=== PATIENT | male | born 1995 | race Caucasian/White ===

== ENCOUNTER 2023-06-25 11:02 | Emergency (ER) | payer MEDICAID, SELFPAY ==
[2023-06-25 11:05] VITALS: BP 161/95; PULSE 105; RESP 22; TEMP 36.4; O2SAT 97; BMI 42.3
--- NOTE | 2023-06-25 11:23 | EDS_ITS ---
HPI History of Present Illness Chief Complaint: Lower Extremity Injury Informant: patient Occured/Mechanism Mechanism/Context: Yes fall Onset/Context/Timing Onset: Yesterday Narrative Narrative: Patient presents with injury to right foot and ankle after a fall yesterday. He was standing on a wooden chair that was unstable and he fell to the ground. He complains of pain to his right foot and ankle and has difficulty with weightbearing today. He did take ibuprofen and Naprosyn yesterday but is not taken anything today for pain. [facility] Medical History (Updated 06/25/23 @ 13:[address] Martha Dale MD) Diabetes Foot injury Home Medications hydrocodone-acetaminophen 5-325mg 5mg-325mg 1 tab PO Q6H PRN PRN Pain 3 days #10 TABLETS 06/25/23 [Rx Last Taken Unknown] Allergy/AdvReac Type Severity Reaction Status Date / Time Penicillins Allergy Severe Anaphylaxis Verified 06/25/23 11:04 gabapentin AdvReac Mild NEURO Verified 06/25/23 11:04 codeine AdvReac Unknown PT UNSURE Verified 06/25/23 11:04 OF REACTION Social History Smoking Status: Unknown if ever smoked ROS ROS ED Constitutional Constitutional ED: Denies chills or fever(s) ENT ENT ED: Denies rhinorrhea Cardiovascular Cardiovascular: Denies chest pain Respiratory/Chest Respiratory/Chest: Denies cough or dyspnea Gastrointestinal Gastrointestinal: Denies abdominal pain or vomiting Musculoskeletal Musculoskeletal: Reports arthralgias; Denies back pain or neck pain Neurologic Neurologic: Denies headache(s) Psychiatric Psychiatric: Denies anxiety or depression Allergic/Immunologic Allergic/Immunologic ED: Denies mouth swelling EXAM Physical Exam Const Vital Signs: 06/25/23 11:05 Temperature 97.5 F L Temperature Source Temporal Pulse Rate 105 H Respiratory Rate 22 H Blood Pressure 161/95 H Blood Pressure Mean 117 Pulse Ox 97 Oxygen Delivery Method Room Air Positive well nourished and well developed General Appearance ED: well developed Neck full ROM Chest Wall inspection of chest normal and palpation of chest normal Resp normal respiratory effort and clear to auscultation bilaterally Cardio regular rate and regular rhythm GI non-tender Extremity Extremity Narrative: Tenderness palpation over the third, fourth, fifth metatarsals with no significant edema or ecchymosis. Cap refill present in all digits. Patient reports decreased sensation to touch in his fourth and fifth toes but does jump when I pinch his toes. Mild tenderness and edema to the lateral malleolus of the ankle. There is no tenderness at the knee or hip. Neuro oriented x3 and moves all extremities Skin no wounds MDM MDM MDM Narrative Medical decision making narrative: Ice pack placed to the wound. Patient given Naprosyn for pain and x-rays of the foot and ankle obtained. Differential diagnosis includes fracture, contusion, sprain, strain. Radiography Diagnostic Testing: Clinical Impression(s) from Imaging Studies Ankle X-Ray 06/25/23 11:25 IMPRESSION: Acute nondisplaced fracture at the proximal fifth metatarsal suggesting zone 3 Greenfield fracture. Age indeterminant probable prior injury of the distal fibula. There is visualized soft tissue edema. Electronically Signed: Renea Cee MD at 12:15 EST , Foot X-Ray 06/25/23 11:25 IMPRESSION: Acute nondisplaced fracture of the proximal shaft of the fifth metatarsal. Electronically Signed: Renea Cee MD at 12:09 EST , ADDENDUM: 06/25/23 1218 IMPRESSION: undefined Treatment and Re-Evaluation Narrative: Right foot x-ray per my interpretation reveals a Greenfield fracture. Ankle x-ray per my interpretation reveals chronic changes but no evidence of acute fracture. Radiology interpretation reviewed on both studies and agrees. Images were sent to Dr. Kline, on-call for podiatry. Patient is splinted with Ortho-Glass posterior splint. He is to remain nonweightbearing. He states he has a walker at home that he will use but does not want crutches. He understands that he cannot put any weight on his right foot. I will give him a prescription for [place]. He will follow-up with Dr. Kline early next week. Procedures Lower Extremity Splints Lower Extremity Splint: Orthoglass Splint Fabrication: Fabricated Location: Right Discharge Plan Triage Chief Complaint: Lower Extremity Injury ED Provider: Martha Dale Dx/Rx/DC Orders Clinical Impression: Greenfield fracture Instructions: ED Fracture, Foot Prescriptions: New hydrocodone-acetaminophen 5-325 mg tablet 1 tab PO Q6H PRN PRN (Reason: Pain) 3 Days Qty: 10 0RF Primary Care Provider: Amanda Biswas [employer]NAGER Referrals: Jeet Kline DPM [Med Staff - Active Staff] - 3-5 Days NOT,DEFINED [Non-Staff] - Disposition Disposition: Home, Self Care
--- NOTE | 2023-06-25 11:25 | RAD_ITS ---
STUDY: X-RAY - RIGHT FOOT CLINICAL: Male, 28 years old. Injury TECHNIQUE: 3 view(s) of the foot. COMPARISON: None. FINDINGS: Normal talus, calcaneus, and tarsal bones. Normal visualized subtalar, talonavicular, calcaneocuboid, tarsal and tarsometatarsal articulations. There is an acute nondisplaced fracture of the proximal shaft of the fifth metatarsal. There is adjacent soft tissue edema. Normal metatarsophalangeal joint of the great toe. Normal tibial and fibular sesamoid bones. Normal interphalangeal joint of the great toe. Normal phalanges of the great toe. Normal second through fifth metatarsophalangeal joints. Normal interphalangeal joints and phalanges of the lesser toes. RAD/Foot min 3 Views IMPRESSION: Acute nondisplaced fracture of the proximal shaft of the fifth metatarsal. Electronically Signed: Renea Cee MD at 12:09 EST ,
--- NOTE | 2023-06-25 11:25 | RAD_ITS ---
STUDY: X-RAY - RIGHT ANKLE REASON FOR EXAM: Male, 28 years old. Injury TECHNIQUE: 3 view(s) of the ankle. COMPARISON: Right foot x-ray June 25, 2023 FINDINGS: Normal visualized distal tibia and fibula. Normal medial and lateral malleoli. Normal tibiotalar articulation and ankle mortise. Normal visualized talus and calcaneus. The visualized subtalar, talonavicular, calcaneocuboid and tarsal articulations are normal. Mild soft tissue edema about the ankle. There is a fairly well-circumscribed calcification adjacent to the distal fibula. There is a partially visualized fracture of the proximal shaft of the fifth metatarsal. RAD/Ankle min 3 Views IMPRESSION: Acute nondisplaced fracture at the proximal fifth metatarsal suggesting zone 3 Greenfield fracture. Age indeterminant probable prior injury of the distal fibula. There is visualized soft tissue edema. Electronically Signed: Renea Cee MD at 12:15 EST Reading Location ID and State: [facility] / ID Tel , Service support ,
[2023-06-25] MEDS: Naproxen 500 MG Tablet PO (11:40)
== END 2023-06-25 13:35 | disposition home or self-care (01) ==
PROVIDERS: Emergency Provider Emergency Medicine; PCP Nurse Practitioner Family; Visit Provider Emergency Medicine
DX: S92.351A Displaced fracture of fifth metatarsal bone, right foot, initial encounter for closed fracture (principal); E11.9 Type 2 diabetes mellitus without complications; W19.XXXA Unspecified fall, initial encounter
CPT/HCPCS: 29515; 73610; 73630; 99282